=== PATIENT | female | born 1965 | race Caucasian/White ===

== ENCOUNTER 2016-11-03 09:26 | Emergency (ER) | payer OTHER ==
[~2016-11-03] VITALS: Ht 165.1 cm; Wt 127.3 kg
[~2016-11-03 09:26] MED LIST: ALDACTONE 100M100 MG PO; K-TAB20 PO; LASIX 40MG TABL40 MG PO; RT ADVAIR 228 DISKUS IH; SUDAFED30 MG PO; TENORMIN 5050 MG/TAB PO
[2016-11-03 10:05] LABS: MEAN CELL VOLUME 124 fl (80.0-100.0); MEAN CORPUSCULAR HGB CONC 31 g/dl (33.0-37.0); MEAN PLATELET VOLUME 9.8 fl (7.4-10.4); PLATELET COUNT 101 K/mm3 (130-400); RED BLOOD COUNT 1.68 M/mm3 (4.10-5.30); REDCELL DISTRIBUTION WIDTH-CV 18.6 % (11.5-14.5); WHITE BLOOD COUNT 12.3 K/mm3 (4.8-10.8)
[2016-11-03 10:07] LABS: ADD PATHOLOGY DIFF REVIEW NO; HEMATOCRIT 20.8 % (37.0-47.0); HEMOGLOBIN 6.5 g/dl (12.5-16.0); INR 2.8 (0.8-3.0); MEAN CORPUSCULAR HEMOGLOBIN 39 pg (27.0-31.0); PROTHROMBIN TIME 31.7 SECONDS (9.7-12.8)
[2016-11-03 10:29] LABS: ARTERIAL BLD GAS O2 SATURATION 95.4 % (92-100); ARTERIAL BLD GAS TCO2 CT 19.7; ARTERIAL BLOOD GAS BASE EXCESS -3.6 (-2-2); ARTERIAL BLOOD GAS HCO3 18.9 meq/L (22-26); ARTERIAL BLOOD GAS PO2 82.7 mmHg (80-100); ARTERIAL BLOOD GAS PO2T 82.7 (80-100); OXYHEMOGLOBIN 92.5 %
[2016-11-03 10:30] LABS: ALLEN TEST NO; ATS? YES
[2016-11-03] MEDS ORDERED: TURMERIC500 MG PO (10:32)
[2016-11-03] MEDS ORDERED: ZITHROMAX Z PA250 MG PO (10:33)
[2016-11-03] MEDS ORDERED: ZYRTEC 10MG10 MG PO (10:37)
[2016-11-03 10:39] LABS: ADJUSTED CALCIUM 10.5 mg/dL (8.4-10.2); ALBUMIN 1.9 gm/dL (3.5-5.0); BILIRUBIN,TOTAL 13.3 mg/dL (0.0-1.0); CALCIUM 8.8 mg/dL (8.4-10.2); CREATININE, serum 0.89 mg/dL (0.52-1.25); POTASSIUM 3.5 mmol/L (3.4-5.0); TOTAL PROTEIN 5.5 gm/dL (6.4-8.2)
[2016-11-03 10:49] LABS: HYALINE CAST >12 /lpf; PH 7 (5-8); SQUAMOUS EPITHELIAL None Seen /hpf; URINE APPEARANCE Cloudy; URINE BACTERIA Many /hpf; URINE BILIRUBIN Positive (NEGATIVE); URINE BLOOD 2+ (NEGATIVE); URINE COLOR Amber; URINE GLUCOSE Negative (NEGATIVE); URINE KETONE Negative (NEGATIVE); URINE RBC None Seen /hpf; URINE UROBILINOGEN >=4.0 mg/dL (NEGATIVE); URINE WBC >50 /hpf
[2016-11-03 11:31] LABS: BAND 38 % (0-10); EOSINOPHIL 2 % (0-4); HYPOCHROMIA 1+; METAMYELOCYTE 2 % (0-0); NEUTROPHILS 48 % (42.0-75.2); PLATELET ESTIMATE DECREASED (NORMAL); TOTAL CELLS COUNTED 100
[2016-11-03 11:32] LABS: ANISOCYTOSIS 2+
[2016-11-03 12:34] VITALS: BP 108/61; PULSE 94; TEMP 98.7
[2016-11-03 12:53] VITALS: BP 106/55; PULSE 86; TEMP 98.6
[2016-11-03 13:03] VITALS: BP 104/58; PULSE 88; TEMP 98.6
[2016-11-03 13:05] VITALS: BP 104/58; PULSE 85
== END 2016-11-03 13:15 | disposition short-term general hospital (02) ==
LOC: COL.ER 09:26
PROVIDERS: Family Medicine
DX: A40.3 Sepsis due to Streptococcus pneumoniae (principal); R65.21 Severe sepsis with septic shock; K72.10 Chronic hepatic failure without coma; M25.011 Hemarthrosis, right shoulder; N39.0 Urinary tract infection, site not specified; B96.4 Proteus (mirabilis) (morganii) as the cause of diseases classified elsewhere
CPT/HCPCS: A4315; J1170; J1956; J7030; P9016

== ENCOUNTER 2017-01-06 09:44 | Emergency (ER) | payer OTHER ==
[~2017-01-06] VITALS: Ht 165.1 cm; Wt 86.4 kg
[~2017-01-06 09:44] MED LIST changes: +TURMERIC500 MG PO; +ZITHROMAX Z PA250 MG PO; +ZYRTEC 10MG10 MG PO
[2017-01-06] MEDS ORDERED: ENULOSE10 GM/15 M (10:17)
[2017-01-06] MEDS ORDERED: XIFAXAN550 MG PO ×2 (10:18)
[2017-01-06] MEDS ORDERED: PROAIR HFA0.09 MG/AC IH (10:20)
[2017-01-06] MEDS ORDERED: TYLENOL 500MG500 MG PO (10:20)
[2017-01-06] MEDS ORDERED: ROXICODONE 55 MG/TAB PO (10:21)
[2017-01-06] MEDS ORDERED: MUCUS RELIEF400 M1 PO (10:21)
[2017-01-06 10:33] LABS: INR 2.2 (0.8-3.0); PROTHROMBIN TIME 25.5 SECONDS (9.7-12.8)
[2017-01-06 10:35] LABS: BASO % 0.4 % (0.0-2.0); EOS # 0.1 (0.0-0.7); EOS % 1.3 % (0-4.0); LYMPH # 1.6 (1.2-3.4); LYMPH % 16.5 % (20.0-51.0); MEAN CELL VOLUME 102 fl (80.0-100.0); MEAN CORPUSCULAR HGB CONC 36 g/dl (33.0-37.0); MEAN PLATELET VOLUME 10.6 fl (7.4-10.4); MONO # 0.7 (0.1-0.6); MONO % 7.5 % (1.7-9.3); PLATELET COUNT 75 K/mm3 (130-400); RED BLOOD COUNT 2.02 M/mm3 (4.10-5.30); REDCELL DISTRIBUTION WIDTH-CV 13.2 % (11.5-14.5); WHITE BLOOD COUNT 9.6 K/mm3 (4.8-10.8)
[2017-01-06 10:36] LABS: HEMATOCRIT 20.6 % (37.0-47.0); MEAN CORPUSCULAR HEMOGLOBIN 37 pg (27.0-31.0)
[2017-01-06 10:37] LABS: HEMOGLOBIN 7.5 g/dl (12.5-16.0)
[2017-01-06 10:38] LABS: ADJUSTED CALCIUM 10.6 mg/dL (8.4-10.2); ALBUMIN 2.2 gm/dL (3.5-5.0); BILIRUBIN,TOTAL 13.3 mg/dL (0.0-1.0); CALCIUM 9.2 mg/dL (8.4-10.2); CREATININE, serum 1.05 mg/dL (0.52-1.25); POTASSIUM 4.4 mmol/L (3.4-5.0)
[2017-01-06 10:59] LABS: PH 5 (5-8); URINE APPEARANCE Hazy; URINE BACTERIA None Seen /hpf; URINE BILIRUBIN Positive (NEGATIVE); URINE BLOOD Negative (NEGATIVE); URINE COLOR Amber; URINE GLUCOSE Negative (NEGATIVE); URINE KETONE Negative (NEGATIVE); URINE RBC 0-2 /hpf
[2017-01-06 12:25] VITALS: TEMP 94.9
[2017-01-06 14:48] VITALS: BP 85/34; PULSE 68
== END 2017-01-06 13:39 | disposition short-term general hospital (02) ==
LOC: COL.ER 09:44
PROVIDERS: Emergency Medicine
DX: S06.5X0A Traumatic subdural hemorrhage without loss of consciousness, initial encounter (principal); K72.10 Chronic hepatic failure without coma; Z76.82 Awaiting organ transplant status; D64.9 Anemia, unspecified; E87.1 Hypo-osmolality and hyponatremia; I95.9 Hypotension, unspecified; X58.XXXA Exposure to other specified factors, initial encounter; W22.8XXA Striking against or struck by other objects, initial encounter; R19.7 Diarrhea, unspecified; I44.7 Left bundle-branch block, unspecified; Y92.009 Unspecified place in unspecified non-institutional (private) residence as the place of occurrence of the external cause
CPT/HCPCS: J0692; J1720; J3370; J7030; J7040

== ENCOUNTER 2017-01-16 21:19 | Emergency (ER) | payer OTHER ==
[~2017-01-16] VITALS: Ht 167.6 cm; Wt 86.4 kg
[~2017-01-16 21:19] MED LIST changes: +ENULOSE10 GM/15 M; +MUCUS RELIEF400 M1 PO; +PROAIR HFA0.09 MG/AC IH; +ROXICODONE 55 MG/TAB PO; +TYLENOL 500MG500 MG PO; +XIFAXAN550 MG PO
[2017-01-16 21:48] LABS: MEAN CELL VOLUME 108 fl (80.0-100.0); MEAN CORPUSCULAR HGB CONC 33 g/dl (33.0-37.0); MEAN PLATELET VOLUME 10.1 fl (7.4-10.4); PLATELET COUNT 90 K/mm3 (130-400); RED BLOOD COUNT 1.42 M/mm3 (4.10-5.30); REDCELL DISTRIBUTION WIDTH-CV 20.3 % (11.5-14.5)
[2017-01-16 21:50] LABS: HEMOGLOBIN 5.1 g/dl (12.5-16.0); MEAN CORPUSCULAR HEMOGLOBIN 36 pg (27.0-31.0)
[2017-01-16 21:51] LABS: ADD PATHOLOGY DIFF REVIEW NO; HEMATOCRIT 15.3 % (37.0-47.0)
[2017-01-16 22:05] LABS: ADJUSTED CALCIUM 10.9 mg/dL (8.4-10.2); ALANINE AMINOTRANSFERASE 84 U/L (9-52); ALKALINE PHOSPHATASE 84 U/L (50-136); ANION GAP 9 mmol/L (7-16); BILIRUBIN,TOTAL 15.3 mg/dL (0.0-1.0); BLOOD UREA NITROGEN 33 mg/dL (7-17); CALCIUM 9.3 mg/dL (8.4-10.2); CARBON DIOXIDE 21 mmol/L (22-30); CHLORIDE 104 mmol/L (98-107); CREATININE, serum 0.77 mg/dL (0.52-1.25); GLUCOSE 73 mg/dL (74-106); LIPASE 164 U/L (23-300); POTASSIUM 4.4 mmol/L (3.4-5.0); SODIUM 135 mmol/L (137-145); TOTAL PROTEIN 4.4 gm/dL (6.4-8.2)
[2017-01-16 22:17] LABS: TROPONIN-I < 0.012 ng/mL (0.000-0.034)
[2017-01-16 22:18] LABS: INR 3.1 (0.8-3.0); PROTHROMBIN TIME 35.1 SECONDS (9.7-12.8)
[2017-01-16 22:20] LABS: PARTIAL THROMBOPLASTIN TIME 62.9 SECONDS (26.0-37.0)
[2017-01-16 22:43] LABS: PH 5 (5-8); SQUAMOUS EPITHELIAL 0-2 /hpf; URINE APPEARANCE Clear; URINE BACTERIA Rare /hpf; URINE BILIRUBIN Positive (NEGATIVE); URINE BLOOD Negative (NEGATIVE); URINE COLOR Amber; URINE GLUCOSE Negative (NEGATIVE); URINE KETONE Trace (NEGATIVE); URINE RBC 0-2 /hpf; URINE UROBILINOGEN >=4.0 mg/dL (NEGATIVE); URINE WBC 0-2 /hpf
[2017-01-16] MEDS ORDERED: ATARAX 25MG25 MG/TAB PO (23:16)
[2017-01-16] MEDS ORDERED: MYLICON 8080 MG/TAB. PO (23:17)
[2017-01-16] MEDS ORDERED: PROAMATINE10 MG PO (23:17)
[2017-01-16 23:41] LABS: BAND 12 % (0-10); EOSINOPHIL 3 % (0-4); NEUTROPHILS 60 % (42.0-75.2); TOTAL CELLS COUNTED 100
[2017-01-17 00:23] VITALS: TEMP 97.2
[2017-01-17 00:34] VITALS: BP 102/62; PULSE 79
== END 2017-01-17 00:40 | disposition short-term general hospital (02) ==
LOC: COL.ER 21:19
PROVIDERS: Emergency Medicine
DX: K74.60 Unspecified cirrhosis of liver (principal); K72.90 Hepatic failure, unspecified without coma; D64.9 Anemia, unspecified; K92.2 Gastrointestinal hemorrhage, unspecified; J44.9 Chronic obstructive pulmonary disease, unspecified; J45.909 Unspecified asthma, uncomplicated
CPT/HCPCS: C9113; J1956; J2354; J2405; J7030; J7040; P9016